=== PATIENT | male | born 1935 | race Caucasian/White ===

== ENCOUNTER 2024-12-18 21:03 | Observation (INO) | payer BC, MEDICARE, OTHER ==
[2024-12-18] MEDS ORDERED: Sodium Chloride 0.9% 10 ML Syringe FLUSH PRN (21:11)
[2024-12-18 21:22] LABS: BASOPHILS ABSOLUTE AUTO 0.02 K/uL (0.00-0.20); BASOPHILS PERCENT AUTO 0.3 % (0.0-2.0); EOSINOPHILS ABSOLUTE AUTO 0.18 K/uL (0.00-0.50); EOSINOPHILS PERCENT AUTO 2.7 % (0.0-5.0); HEMATOCRIT 37.3 % (39.0-49.0); HEMOGLOBIN 13.3 g/dL (13.1-16.8); IMMATURE GRAN ABSOLUTE AUTO 0.02 10^3/uL (0.00-0.04); IMMATURE GRAN PERCENT AUTO 0.3 % (0.0-0.4); MEAN CORPUSCULAR HEMOGLOBIN 31.1 pg (28.2-33.3); MEAN CORPUSCULAR HGB CONC 35.7 g/dL (31.7-36.0); MEAN CORPUSCULAR VOLUME 87.4 fL (84.0-98.0); MONOCYTES ABSOLUTE AUTO 0.73 K/uL (0.00-1.00); NEUTROPHILS ABSOLUTE AUTO 4.31 K/uL (1.40-7.00); NEUTROPHILS PERCENT AUTO 64.7 % (45.0-80.0); PLATELET COUNT,PLT 194 K/uL (150-350); RED BLOOD CELL COUNT 4.27 M/uL (4.33-5.41); WHITE BLOOD CELL COUNT,WBC 6.7 K/uL (4.0-10.2)
[2024-12-18 21:24] LABS: INR 1.5
[2024-12-18] MEDS ORDERED: Lactated Ringers 1,000 ML IV ONE (21:28)
[2024-12-18] MEDS ORDERED: Naloxone 0.4 MG/ML SDV IVPUSH PRN (21:30)
[2024-12-18] MEDS ORDERED: Ondansetron 4 MG/2 ML SDV IVPUSH ONE (21:30)
[2024-12-18] MEDS ORDERED: fentaNYL 50 MCG/ML SDV IVPUSH ONE (21:30)
[2024-12-18] MEDS ORDERED: Lidocaine 1% 5 ML VIAL ONE ×2 (21:35→23:55)
[2024-12-18 21:44] LABS: ALANINE AMINOTRANSFERASE,ALT 32 U/L (12-78); ALBUMIN 3.8 g/dL (3.4-5.0); ALKALINE PHOSPHATASE 99 IU/L (46-116); ASPARTATE AMNIOTRANSFERASE,AST 26 U/L (15-37); BILIRUBIN TOTAL 0.5 mg/dL (0.2-1.0); BLOOD UREA NITROGEN,BUN 16 mg/dL (7-18); CALCIUM 9.2 mg/dL (8.5-10.1); CARBON DIOXIDE,CO2 26.1 mmol/L (21.0-32.0); CREATININE 1.06 mg/dL (0.51-1.17); GLUCOSE RANDOM 110 mg/dL (70-99); MAGNESIUM 1.8 mg/dL (1.8-2.4); POTASSIUM,K 3.5 mmol/L (3.5-5.1); PROTEIN TOTAL,TP 7.2 g/dL (6.4-8.2)
[2024-12-18 21:49] LABS: ANION GAP 12.4 meq/L (7-15); CHLORIDE,CL 94 mmol/L (98-107); ESTIMATED GFR 67 mL/min (>=60); SODIUM,NA 129 mmol/L (136-145)
[2024-12-19] MEDS ORDERED: Diphtheria,Pertussis(Acell),Tetanus Vaccine 0.5 ML Syringe IM ONE (00:39)
[2024-12-19] MEDS ORDERED: Ondansetron 4 MG Tab.DIS PO PRN (00:56)
[2024-12-19] MEDS ORDERED: Prochlorperazine 5 MG in Sodium Chloride 0.9% 100 ML IV PRN (00:56)
[2024-12-19] MEDS ORDERED: Morphine 2 MG/ML SYRINGE IVPUSH PRN (00:56)
[2024-12-19] MEDS ORDERED: Acetaminophen 325 MG Tab PO PRN (00:56)
[2024-12-19] MEDS ORDERED: Triamcinolone Acetonide 0.1% Crm 15 GM Tube TOP PRN (00:59)
[2024-12-19] MEDS ORDERED: Camphor/Menthol 0.5-0.5% Lotion 222 ML Bottle TOP PRN (00:59)
[2024-12-19] MEDS ORDERED: hydrOXYzine HCl 25 MG Tab PO PRN (00:59)
[2024-12-19] MEDS ORDERED: Prochlorperazine 10 MG/2 ML SDV IVPUSH PRN (01:02)
[2024-12-19] MEDS: Acetaminophen/HYDROcodone 325-5 MG Tab PO PRN (01:28)
[2024-12-19] MEDS: Sodium Chloride 1 GM Tab PO SCH (07:54)
[2024-12-19] MEDS: Hydrochlorothiazide 25 MG Tab PO SCH (07:54)
[2024-12-19] MEDS: Aspirin 81 MG Tab.EC PO SCH (07:54)
[2024-12-19] MEDS: Cetirizine 10 MG Tab PO SCH (07:55)
[2024-12-19] MEDS: Magnesium Oxide 400 MG Tab PO SCH (07:55)
[2024-12-19] MEDS: atorvaSTATin 40 MG Tab PO SCH (07:56)
[2024-12-19] MEDS: Folic Acid 1 MG Tab PO SCH (07:59)
[2024-12-19] MEDS ORDERED: Aluminum Hydroxide/Magnesium Hydroxide/Simethicone Susp 30 ML Cup PO SCH (18:00)
[2024-12-19] MEDS ORDERED: hydrOXYzine HCl 25 MG Tab PO SCH (18:00)
[2024-12-19] MEDS ORDERED: Metoprolol Succinate 25 MG Tab.ER PO SCH (18:00)
[2024-12-19] MEDS ORDERED: amLODIPine 5 MG Tab PO SCH (18:00)
[2024-12-19] MEDS ORDERED: Rivaroxaban 10 MG Tab PO SCH (18:00)
[2024-12-19] MEDS ORDERED: diphenhydrAMINE 25 MG/10 ML Cup PO SCH (18:00)
[2024-12-23] MEDS ORDERED: Methotrexate 2.5 MG Tab PO SCH (08:00)
== END 2024-12-19 10:55 | disposition home or self-care (01) ==
LOC: LL.ED 21:03 → LL.MS 12-19 00:07
PROVIDERS: ADMIT Physician Assistant; ATTEND Physician Assistant
DX: S42.032A Displaced fracture of lateral end of left clavicle, initial encounter for closed fracture (principal); Z79.82 Long term (current) use of aspirin; Z79.899 Other long term (current) drug therapy; W19.XXXA Unspecified fall, initial encounter
CPT/HCPCS: 12013; 36415; 70450; 72125; 73000-LT; 80053; 83735; 84484; 85025; 85610; 90715; 93005; 93010; 96361; 96374; 96375; 97161-GP; 97165-GO; 97535-GO; 99236; 99285-25; A9270-GY; G0378; J2003; J7120